=== PATIENT | male | born 1985 | race Caucasian/White ===

== ENCOUNTER 2017-03-05 20:05 | Emergency (ER) | payer BC, OTHER ==
[~2017-03-05] VITALS: Ht 180.3 cm; Wt 91.7 kg
[2017-03-05 20:07] VITALS: TEMP 36.6; Ht 180.3 cm; Wt 91.7 kg
[2017-03-05] MEDS ORDERED: EpINEphrine INJ 1MG/ML AMP 1 MG/ML AMP ONE (20:20)
[2017-03-05] MEDS ORDERED: METHYLPREDNISOLONE 125 MG VIAL IV STA (20:21)
[2017-03-05] MEDS ORDERED: RANITIDINE HCL 50 MG/100 ML D5W IV STA (20:21)
[2017-03-05] MEDS ORDERED: DiphenhydrAMINE HCL 50 MG/ML VIAL IV STA (20:21)
[2017-03-05] MEDS ORDERED: EpINEphrine INJ 1MG/ML AMP 1 MG/ML AMP IM STA (20:21)
[2017-03-05] MEDS ORDERED: IBUP-103 PO (20:44)
--- NOTE | 2017-03-05 22:07 | EMERGENCY ROOM VISIT NOTE ---
History Report prepared by Licha: Ange Wills Under the Supervision of: Dr. Ed Salmeron M.D. First contact with patient: 20:18 Chief Complaint: ALLERGIC REACTION Stated Complaint: ALLERGIC REACTION TO SESAME History of Present Illness The patient is a 31 year old male who presents to the Emergency Room with complaints of persistent allergic reaction starting around 1900 today (1 hour and 20 minutes ago). 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 He was eating jazzmine bread which contained sesame flour which he did not realize. He started to feel the reaction right away. The reaction worsened over 1 hour and then started improving. He did not administer his EpiPen because it was . He was going to take Benadryl, but the symptoms worsened so he decided to come to the ED. His breathing feels tight and he has itching and hives. His last allergic reaction was 7 years ago. Source of History: patient Onset: 1 hour 20 minutes ago Position: other (global) Quality: other (allergic reaction) Timing: other (persistent) Associated Symptoms: + SOB Note: Pt reports hives, itching. Review of Systems See HPI for pertinent positives & negatives. A total of 10 systems reviewed and were otherwise negative. Past Medical & Surgical Medical Problems: (1) No chronic problems Family History No pertinent family history stated. Social History Smoking Status: Former Smoker Marital Status: Housing Status: lives with family Occupation Status: employed Current/Historical Medications Scheduled Epinephrine (Epipen 2-Bill), 1 DOSE IM DIRECTED Ibuprofen Tab (Advil), 400 MG PO PRN UD Prednisone (Prednisone), 2 TAB PO DAILY Allergies Coded Allergies: [place] (Unverified Allergy, Mild, UNKNOWN, 04/17/10) Uncoded Allergies: HORSES (Allergy, Severe, ANAPHYLAXIS, 03/05/17) SESAME (Allergy, Intermediate, HIVES/SWELLING/SOB, 11/22/10) Physical Exam Vital Signs Date Time Temp Pulse Resp B/P (MAP) Pulse Ox O2 Delivery O2 Flow Rate FiO2 03/05/17 23:29 64 14 97/54 97 Room Air 03/05/17 21:31 79 18 117/56 96 Room Air 03/05/17 20:20 Room Air 03/05/17 20:15 93 03/05/17 20:07 36.6 99 18 112/61 96 Room Air Physical Exam GENERAL: Patient is in no acute distress. HEENT: Facial edema and some uvular edema, lips slightly swollen, face is flushed, mucous membranes moist. NECK: No stridor, no adenopathy, no meningismus, trachea is midline. LUNGS: Clear to auscultation bilaterally, no wheeze, no rhonchi, breath sounds equal. HEART: Without murmurs gallops or rubs, regular rate and rhythm. ABDOMEN: Soft, nontender, bowel sounds positive, no hernias, no peritonitis. EXTREMITIES: No cyanosis or edema, full range of motion of all the joints without pain or difficulty, no signs for acute trauma. NEUROLOGIC: Oriented x 3, no acute motor or sensory deficits, no focal weakness. SKIN: Scattered hives, no jaundice. Medical Decision & Procedures Medications Administered Medications (Trade) Dose Ordered Sig/Adan Route Start Time Stop Time Status Last Admin Dose Admin Epinephrine HCl (EpINEphrine INJ 1MG/ML AMP/VIAL) 1 mg STK-MED ONCE .ROUTE 03/05/17 20:20 03/05/17 20:21 DC 03/05/17 20:28 0.3 MG Ranitidine HCl (zANTac IV) 50 mg NOW STAT IV 03/05/17 20:21 03/05/17 20:24 DC 03/05/17 20:27 50 MG Diphenhydramine HCl (Benadryl Inj) 50 mg NOW STAT IV 03/05/17 20:21 03/05/17 20:24 DC 03/05/17 20:27 50 MG Methylprednisolone Sodium Succinate (Solu-Medrol IV) 125 mg NOW STAT IV 03/05/17 20:21 03/05/17 20:24 DC 03/05/17 20:27 125 MG Epinephrine (Epipen) 0.3 mg NOW STAT IM 03/05/17 22:48 03/05/17 22:49 DC 03/05/17 22:55 0.3 MG ED Course 2019: The patient was evaluated in room A10. A complete history and physical exam was performed. 2020: Epinephrine HCl 0.3 mg IM, Solu-Medrol IV 125 mg IV, Benadryl Inj 50 mg IV , Ranitidine HCl 50 mg IV. 2216: I reevaluated the patient. He appears markedly improved. He is feeling significantly better. 2247: Epipen 0.3 mg IM. 2320: I reevaluated the patient. I discussed results and discharge instructions : he verbalized understanding and agreement. The patient is ready for discharge. Medical Decision Differential diagnoses considered include anaphylaxis, uvular edema, acute allergic reaction, hives. The patient presents with an acute allergic reaction. 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 He had facial edema, lip swelling and some uvular edema. He felt tight in his throat. He was not hypoxic. There was no stridor. He was not wheezing. The patient was given IM epinephrine, IV Solu-Medrol, IV Zantac and IV Benadryl. He was watched here for around 4 hours. He is markedly improved, his symptoms have almost completely resolved. The patient is being discharged with an EpiPen, Benadryl and prednisone. He will return if worsening. His presentation is consistent with an acute allergic reaction. Impression Primary Impression: Acute allergic reaction Additional Impression: Facial edema Scribe Attestation The scribe's documentation has been prepared under my direction and personally reviewed by me in its entirety. I confirm that the note above accurately reflects all work, treatment, procedures, and medical decision making performed by me. Departure Information Dispostion Home / Self-Care Prescriptions Epinephrine (EPIPEN 2-BILL) 0.3 Mg Inj 1 DOSE IM DIRECTED, #1 APPL 2 Refills Prov: Ed Salmeron M.D. 03/05/17 Prednisone (Prednisone) 20 Mg Tab 2 TAB PO DAILY for 4 Days, #8 TAB Prov: Ed Salmeron M.D. 03/05/17 Referrals No Doctor, Assigned (PCP) Forms HOME CARE DOCUMENTATION FORM, IMPORTANT VISIT INFORMATION Patient Instructions My [facility] Additional Instructions epipen with you at all times prednisone daily for the next 4 days benadryl 2 tab 3x per day for 4 days return if worsening or have return of symptoms sleep with the head elevated to help the swelling Problem Qualifiers
[2017-03-05] MEDS ORDERED: PRED20TA PO (22:47)
[2017-03-05] MEDS ORDERED: EPP3/2 IM (22:47)
[2017-03-05] MEDS ORDERED: EPINEPHRINE ADULT AUTO-INJECT 0.3 MG SYR IM STA (22:48)
[2017-03-05 23:53] VITALS: BP 97/54; PULSE 64; O2SAT 97
== END 2017-03-05 23:50 | disposition home or self-care (01) ==
LOC: C.EDB 20:07 → C.EDA 23:50
DX: T78.40XA Allergy, unspecified, initial encounter (principal); X58.XXXA Exposure to other specified factors, initial encounter; R60.9 Edema, unspecified; Z87.891 Personal history of nicotine dependence; Z91.018 Allergy to other foods